=== PATIENT | male | born 1955 | race Caucasian/White ===

== ENCOUNTER 2024-04-23 05:57 | Day surgery (SDC) | payer MEDICARE, OTHER ==
[~2024-04-23 05:57] MED LIST: Midazolam 1 MG/ML 2 ML SDV ONE; fentaNYL 100 MCG/2 ML SDV ONE
[2024-04-23] MEDS ORDERED: Midazolam 1 MG/ML 2 ML SDV IV ONE (05:58)
[2024-04-23] MEDS ORDERED: fentaNYL 100 MCG/2 ML SDV IV ONE (05:58)
[2024-04-23] MEDS: Dextrose 5%-0.45% NaCl 1,000 ML IV SCH (06:23)
[2024-04-23] MEDS: fentaNYL 100 MCG/2 ML SDV IV ONE ×2 (06:28→06:29)
[2024-04-23] MEDS: Midazolam 1 MG/ML 2 ML SDV IV ONE ×4 (06:29→06:34)
== END 2024-04-23 08:10 | disposition home or self-care (01) ==
LOC: DL.ENDO 05:57
PROVIDERS: ATTEND Internal Medicine Gastroenterology
DX: Z12.11 Encounter for screening for malignant neoplasm of colon (principal); D12.0 Benign neoplasm of cecum; D12.3 Benign neoplasm of transverse colon; Z86.010 Personal history of colon polyps; I10 Essential (primary) hypertension; E11.9 Type 2 diabetes mellitus without complications
CPT/HCPCS: 88305; J2250; J3010; J7799